=== PATIENT | male | born 1990 | race Caucasian/White ===

== ENCOUNTER 2017-12-13 09:45 | Inpatient (IN) | payer OTHER ==
[~2017-12-13] VITALS: Ht 190.5 cm; Wt 63.5 kg
--- NOTE | 2017-12-13 15:25 | NUR ---
Pre Assessment Patient met in intake office @ 7608. He is alert and oriented and has just arrived from [facility] via [facility]. He states he is here at [facility] for a medically supervised withdrawal from ETOH ( hard Liquor ). History: 1L of hard Liquor ( Vodka/Whisky/Velarde) every day for past 3 years, he states he has been drinking ETOH for 6 years total but the past 3 years at this rate of 1L /day He states he last had 1 pint ( 500ml) of Vodka at 0300 this AM 12/13/17. he does not seem intoxicated nor does he show S/S of ETOH withdrawal at this time. BRENDA 9 Explained unit policies and protocol and will continue assessment when patient is on the floor. Room 310
[2017-12-13] MEDS ORDERED: [UNRECOGNIZED DRUG - OTHER] (15:40)
[2017-12-13] MEDS ORDERED: ONDANSETRON ODT 4 MG TAB.RAPDIS SL PRN (15:45)
[2017-12-13] MEDS ORDERED: LORAZEPAM 2 MG/1 ML VIAL IM PRN (15:45)
[2017-12-13] MEDS ORDERED: CLONIDINE HCL 0.1 MG TABLET PO PRN (15:45)
[2017-12-13] MEDS ORDERED: THIAMINE HCL 200 MG/2 ML VIAL IM ONE (15:45)
[2017-12-13] MEDS ORDERED: DIAZEPAM 5 MG TABLET PO PRN (15:45)
[2017-12-13] MEDS ORDERED: DIAZEPAM 10 MG TABLET PO PRN ×2 (15:45)
[2017-12-13] MEDS ORDERED: IBUPROFEN 600 MG TABLET PO PRN (15:45)
[2017-12-13] MEDS ORDERED: MAGNESIUM HYDROXIDE 30 ML LIQUID UDC PO PRN (15:45)
[2017-12-13] MEDS ORDERED: ONDANSETRON 4 MG/2 ML VIAL IM PRN (15:45)
[2017-12-13] MEDS ORDERED: HYDROXYZINE PAMOATE 25 MG CAPSULE PO PRN (15:45)
[2017-12-13] MEDS ORDERED: LOPERAMIDE HCL 2 MG CAPSULE PO PRN ×2 (15:45)
[2017-12-13] MEDS ORDERED: MAG HYDROX/AL HYDROX/SIMETH 30 ML LIQUID UDC PO PRN (15:45)
[2017-12-13 16:00] VITALS: BP 121/81
[2017-12-13 16:17] LABS: *AMPHETAMINE, URINE NEGATIVE (NEGATIVE); *BARBITURATE, URINE NEGATIVE (NEGATIVE); *CANNABINOID, URINE NEGATIVE (NEGATIVE); *COCCAINE, URINE NEGATIVE (NEGATIVE); *OPIATE, URINE NEGATIVE (NEGATIVE); *PHENCYCLIDINE SCREEN,URINE NEGATIVE (NEGATIVE)
--- NOTE | 2017-12-13 18:22 | NUR ---
Admission Note Patient is a 27yr old male who arrived on the unit today 12/13/17 @ 1540. He is alert and oriented with a steady gait. He is clean and dressed nicely. His weight is 140lbs and Height 6'3", skin is dry and intact, he states no past medical history and no psychiatric history, He denies PCP or Psychiatrist. The only medication he takes and which he brought with him is " Apetamin" which is a vitamin supplement he takes 3 times per day before meals to increase appetite, medication has been taken to pharmacy. 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 Substance abuse history: ETOH ( hard Liquor/ Vodka/Alcorn/Whisky) 1L / day for the past 3 years last consumed 500ml Vodka @ 0300 on 12/13/17, he has been drinking at this rate for 3 years but total amount of years drinking ETOH is 6 years. Patient smokes Cigarettes- 10 cigarettes /day This is his first time in Recovery, he has never tried to get sober before, when asked Why now ? he replies " my wants me to get sober and gave me an ultimatum, I have a 6month old son and I don't want to mess this all up". He states the reason why he drinks is because of stress, stress of work , life , his Father was murdered a few years ago and he uses alcohol as a coping mechanism to deal with all the sadness in his life, he states his Mother of cancer when he was 3 years old- she was only 32 yrs old. He wants to go on to a 30 day Inpatient Recovery Center so he can learn the tools to live a sober life and to be able to deal with negative emotions and thoughts without having to drink alcohol. His withdrawal symptoms include lethargy, restlessness, thirst, decreased appetite. Encouraged to be open and honest about recovery and encouraged to attend therapy sessions and learn new coping skills and techniques. Patient is hopeful and eager to learn all that he can while here at [facility]. VSS : BP 121/81, HR 67, RR 17, T 98, O2SATS 96%, pain 0/10, CIWA 9 Lung sounds clear throughout, BS present in all 4 quadrants, no SOB noted MD placed patient on a 4 day Valium taper starting at 0900 12/14/17. Patient verbalizes understanding of plan of care, group therapy and discharge planning.
--- NOTE | 2017-12-13 19:09 | NUR ---
End Of Shift Patient is a 27 yr old new admit today 12/13/[address] [facility] for a medically supervised withdrawal from ETOH, he has been placed on a 4 day Valium taper to start tomorrow 12/14/17 @ 0900. No PRN medications have been required since admission, patient is resting in bed with eyes closed. CIWA was 9 @ 1700. He had a fluid intake of 355ml and 1 void. Continue to follow MD plan of care and offer support and encouragement. Endorsed to academic intern.
--- NOTE | 2017-12-13 19:10 | NUR ---
Start of Shift Received 27 year old male patient admitted 12/13/17 to [facility] for medically supervised withdrawal from ETOH. Pt was not given any PRN medications on day shift. Last CIWA 9 @ 1700. Pt is withdrawn, isolative, anxious, agitated, sleepy, and guarded. Pt in bed resting with eyes closed. Respirations are even and unlabored. Bed is low, side rails up x 2, and call chase in reach. Will continue to monitor.
[2017-12-13 20:00] VITALS: BP 116/72
--- NOTE | 2017-12-13 20:00 | NUR ---
CIWA 9 Pt is withdrawn, isolative, anxious, agitated, sleepy, and guarded. Pt in bed resting with eyes closed. Respirations are even and unlabored.
[2017-12-13 23:13] LABS: BASOPHILS % (AUTO) 0.6 % (0.0-2.0); EOSINOPHILS # (AUTO) 0.2 K/uL (0.0-0.7); EOSINOPHILS % (AUTO) 3.8 % (0.0-7.0); HEMATOCRIT 43.1 % (36.7-47.1); HEMOGLOBIN 14.3 g/dL (12.5-16.3); LYMPHOCYTES # (AUTO) 3.3 K/uL (20.0-40.0); LYMPHOCYTES % (AUTO) 51.2 % (20.5-51.5); MEAN CORPUSCULAR HEMOGLOBIN 26.8 uug (23.8-33.4); MEAN CORPUSCULAR HGB CONC 33 g/dL (32.5-36.3); MEAN CORPUSCULAR VOLUME 80.6 fL (73.0-96.2); MONOCYTES # (AUTO) 0.7 K/uL (2.0-10.0); MONOCYTES % (AUTO) 10.4 % (0.0-11.0); NEUTROPHILS # (AUTO) 2.2 K/uL (1.8-8.9); PLATELET COUNT (AUTO) 251 K/uL (152-348); RED BLOOD CELL COUNT(AUTO) 5.35 MIL/uL (4.06-5.63); WHITE BLOOD COUNT (AUTO) 6.4 K/uL (3.6-10.2)
[2017-12-13 23:35] LABS: ALANINE AMINOTRANSFERASE 23 U/L (16-63); ALKALINE PHOSPHATASE 78 U/L (50-136); AMYLASE 88 U/L (25-115); ASPARTATE AMINOTRANSFERASE 12 U/L (15-37); BILIRUBIN,TOTAL 0.6 mg/dL (0.2-1.0); CARBON DIOXIDE 29 mmol/L (21-32); CHLORIDE 103 mmol/L (98-107); CREATININE 1.1 mg/dL (0.6-1.3); GLUCOSE 95 mg/dL (74-106); LIPASE 170 U/L (73-393); POTASSIUM 4.2 mmol/L (3.5-5.1); TOTAL PROTEIN, SERUM 7.3 g/dL (6.4-8.2); UREA NITROGEN, BLOOD 16 mg/dL (7-18)
[2017-12-13 23:43] LABS: ETHANOL < 3 MG/DL (0-0)
--- NOTE | 2017-12-14 | NUR ---
CIWA deferred / Vitals refused Pt resting with eyes closed. Respirations are even and unlabored. CIWA deferred and pt refused vitals. Continue to monitor.
[2017-12-14 00:04] LABS: THYROID STIMULATING HORMONE 0.728 mIU/mL (0.358-3.740)
--- NOTE | 2017-12-14 04:00 | NUR ---
CIWA deferred / Vitals refused Pt resting with eyes closed. Respirations are even and unlabored. CIWA deferred and pt refused vitals. Continue to monitor.
--- NOTE | 2017-12-14 06:46 | NUR ---
End of Shift Endorsing 27 year old male patient admitted 12/13/17 to [facility] for medically supervised withdrawal from ETOH. Pt was not given any PRN medications on night filler. Last CIWA 9 @ 1999. Pt in bed resting with eyes closed. Respirations are even and unlabored. Bed is low, side rails up x 2, and call chase in reach. PO intake 0 ml, voided x 0, BM x 0, and slept 12 hours.
--- NOTE | 2017-12-14 07:30 | NUR ---
Start of Shift Hybrid Car Mechanic received report on 27 year old male admitted to [facility] on 12/13/17 for medical management of ETOH withdrawals. Pt endorses allergies to seafood, full code and regular diet. Pt denies PMH or PPH. Pt currently on 4 day Valium with last CIWA 9, per NOC. No PRN medication on NOC, per report. Hybrid Car Mechanic encounter pt in room resting with eyes closed. Even and unlabored respirations noted. Bed in locked position with wheels locked and side rails x2. Will continue to monitor, support and encourage according to plan of care.
[2017-12-14 08:00] VITALS: BP 105/58
--- NOTE | 2017-12-14 08:00 | NUR ---
CIWA 13 Pt is diaphoretic. tremuluous, restless, anxious and complains of nausea, and chills. Pt with tactil hallucinations and a headache. Will continue to monitor, support and encourage according to plan of care.
[2017-12-14] MEDS ORDERED: 4 DAY TAPER VALIUM-SERENITY PROTOCOL PO PRN (09:00)
[2017-12-14] MEDS ORDERED: TUBERCULIN,PURIF.PROT.DERIV. 5 TU/0.1 ML TEST ID ONE (09:00)
[2017-12-14] MEDS: MULTIVITAMINS,THERAPEUTIC TABLET PO SCH (09:43)
[2017-12-14] MEDS: FOLIC ACID 1 MG TABLET PO SCH (09:43)
[2017-12-14] MEDS: DIAZEPAM 5 MG TABLET PO SCH ×4 (09:43→20:29)
[2017-12-14] MEDS: THIAMINE HCL 100 MG TABLET PO SCH (09:43)
--- NOTE | 2017-12-14 09:50 | NUR ---
Therapist prompted client to attend group therapy.
[2017-12-14 12:17] VITALS: BP 114/70
--- NOTE | 2017-12-14 12:20 | NUR ---
CIWA 9 Pt remains anxious with restlessness, diaphoresis, and tremors. Pt endorses nausea and chills. Will continue to monitor, support and encourage according to plan of care.
[2017-12-14 16:30] VITALS: BP 124/75
--- NOTE | 2017-12-14 16:30 | NUR ---
CIWA 10 Pt diaphoretic, tremulous, anxious, restless and complains of nausea and chills. Pt is withdrawn and guarded. Will continue to monitor, support and encourage according to plan of care.
--- NOTE | 2017-12-14 18:48 | NUR ---
End of Shift Street Light Repairer Helper provided report on 27 year old male admitted to [facility] on 12/13/17 for medical management of ETOH withdrawals. Pt endorses allergies to seafood, full code and regular diet. Pt denies PMH or PPH. Pt currently on 4 day Valium with last CIWA 10, recorded at 1630. No PRN medication on this shift. Pt with a slow and concrete thought process. Pt with a clear, soft speech pattern. Pt with a blunted affect and depressed mood. Pt is anxious, restless and diaphoretic. Pt is quiet, withdrawn and guarded with staff. Pt is isolative to self and room, with no peer interaction. Bed in locked position with wheels locked and side rails x2.
--- NOTE | 2017-12-14 19:20 | NUR ---
Start of Shift Received 27 year old male patient admitted 12/13/17 to [facility] for medically supervised withdrawal from ETOH. Pt was not given any PRN medications on day shift. Last CIWA 10 @ 1600. Pt in bed resting with eyes closed. Respirations are even and unlabored. Bed is low, side rails up x 2, and call chase in reach. Will continue to monitor.
[2017-12-14 20:00] VITALS: BP 114/59
--- NOTE | 2017-12-15 | NUR ---
CIWA deferred/Vitals refused Pt resting with eyes closed. Respirations are even and unlabored. CIWA deferred and pt refused vitals. Continue to monitor.
--- NOTE | 2017-12-15 04:00 | NUR ---
CIWA deferred/Vitals refused Pt resting with eyes closed. Respirations are even and unlabored. CIWA deferred and pt refused vitals. Continue to monitor.
[2017-12-15 05:10] LABS: HEPATITIS B SURFACE AG Negative (Negative)
--- NOTE | 2017-12-15 06:45 | NUR ---
End of Shift Endorsing 27 year old male patient admitted 12/13/17 to [facility] for medically supervised withdrawal from ETOH. Pt was not given any PRN medications on day shift. Last CIWA 10 @ 1999. Pt is in bed resting with eyes closed. Respirations are even and unlabored. Bed is low, side rails up x 2, and call chase in reach. PO intake 1506 ml, voided x 2, BM x 0, and slept 12 hours.
[2017-12-15 08:00] VITALS: BP 114/66
--- NOTE | 2017-12-15 08:00 | NUR ---
START OF SHIFT CIWA ASSESSMENT Pt 27 y/o male admitted for etoh withdrawal. Pt received in room on bed with eyes closed resting, but easily arousable to name. Pt alert and oriented to name, place, and time. Perrla. Skin warm and moist to touch. Respirations even and unlabored. Appears disheveled and unkempt. Clothes scattered throughout the room. Encouraged to maintain hygiene. Anxious and restless. Pressured speech. Bilateral hand tremors noted. Irritable. Complaints of generalized discomfort. ciwa=10 @0800. It was reported that pt slept for 12 hours last night. Last ciwa = 10@1999. Pt is on a 4 day valium taper and is on day 2. Bed on lowest position with side rails x 2 up for safety. Call light within reach.
[2017-12-15] MEDS: MULTIVITAMINS,THERAPEUTIC TABLET PO SCH (08:11)
[2017-12-15] MEDS: FOLIC ACID 1 MG TABLET PO SCH (08:11)
[2017-12-15] MEDS: THIAMINE HCL 100 MG TABLET PO SCH (08:11)
[2017-12-15] MEDS: DIAZEPAM 5 MG TABLET PO SCH ×3 (08:12→20:33)
[2017-12-15 12:00] VITALS: BP 104/58
--- NOTE | 2017-12-15 12:00 | NUR ---
CIWA ASSESSMENT ciwa=10. Bilateral hand tremors noted. Anxious and restless. Pressured speech noted. Irritable and some agitation noted. Complaints of generalized discomfort.
--- NOTE | 2017-12-15 12:53 | NUR ---
Therapist prompted client to attend group therapy sessions.
[2017-12-15 16:00] VITALS: BP 106/62
--- NOTE | 2017-12-15 16:00 | NUR ---
CIWA ASSESSMENT ciwa=10. Anxious and restless. Pressured speech. Bilateral hand tremors noted. Irritable. Fidgety. Complaints of generalized discomfort.
--- NOTE | 2017-12-15 18:23 | NUR ---
END OF SHIFT Pt 27 y/o male admitted for etoh withdrawal. Pt alert and oriented to name, place, and time. Perrla. Skin warm and moist to touch. Respirations even and unlabored. Appears disheveled and unkempt. Clothes and empty drink bottles scattered throughout the room. Encouraged to maintain hygiene. Anxious and restless. Pressured speech noted. Fidgety. Bilateral hand tremors noted. Complaints of generalized discomfort. Isolative to room throughout the day with minimal peer interaction. Pt attended group activity. Pt medication compliant. Last ciwa=10 @ 1600. Pt is on a 4 day valium taper and is on day 2. Bed on lowest position with side rails x2 up for safety. Call light within reach.
--- NOTE | 2017-12-15 19:12 | NUR ---
Start of shift note Received report from day shift nurse. Pt is a 27 yo male, A+Ox4, presenting to [facility] fro medically supervised ETOH withdrawal. Pt noted with restlessness, anxiety, and agitation. Pt has no medical HX to report. Pt is on 4 day Valium taper, tolerated well. Respirations even and unlabored. Will continue to monitor.
[2017-12-15 20:12] VITALS: BP 134/77
--- NOTE | 2017-12-15 20:12 | NUR ---
CIWA Assessment CIWA: 9. Pt noted with fine tremors, anxiety, agitation, and sweat on brow. Respirations even and unlabored. Will continue to monitor.
--- NOTE | 2017-12-16 00:12 | NUR ---
V/S refused and CIWA Assessment deferred for sleep. Respirations even and unlabored. Will continue to monitor.
--- NOTE | 2017-12-16 04:47 | NUR ---
V/S refused and CIWA Assessment deferred for sleep. Respirations even and unlabored. Will continue to monitor.
--- NOTE | 2017-12-16 07:00 | NUR ---
End of shift note Pt was continuously noted with agitation, anxiety, and restlessness. Pt remained in room for majority of shift except to get food from kitchen and to go smoke on smoking patio. Pt remained compliant and cooperative with all aspects of treatment. Pt was not given any PRN medications during shift. Pt remains on 4 day Valium taper, tolerated well. Pt slept for a total of 9 HRS. Last CIWA: 9 @2011. Respirations even and unlabored. Will endorse to day shift nurse.
[2017-12-16 08:00] VITALS: BP 108/60
--- NOTE | 2017-12-16 08:00 | NUR ---
START OF SHIFT CIWA ASSESSMENT Pt 27 y/o male admitted for etoh withdrawal. Pt received in room awake watching television. Pt alert and oriented to name, place, and time. Perrla. Skin warm and moist to touch. Respirations even and unlabored. Appears disheveled. Clothes scattered throughout the room. Encouraged to maintain hygiene. Anxious and restless. Pressured speech. Bilateral hand tremors noted. Complaints of generalized discomfort. ciwa=11 @0800. It was reported that pt slept for 7 hours last night. Last ciwa=9 @1999. Pt is on a 4 day valium taper and is on day 3. Bed on lowest position with side rails x 2 up for safety. Call light within reach.
[2017-12-16] MEDS: THIAMINE HCL 100 MG TABLET PO SCH (08:28)
[2017-12-16] MEDS: FOLIC ACID 1 MG TABLET PO SCH (08:28)
[2017-12-16] MEDS: MULTIVITAMINS,THERAPEUTIC TABLET PO SCH (08:28)
[2017-12-16] MEDS: DIAZEPAM 5 MG TABLET PO SCH ×2 (08:28→20:08)
[2017-12-16 12:00] VITALS: BP 119/75
--- NOTE | 2017-12-16 12:00 | NUR ---
CIWA ASSESSMENT ciwa=11. Bilateral hand tremors noted. Anxious and restless. Pressured speech. Complaints of generalized discomfort.
--- NOTE | 2017-12-16 16:00 | NUR ---
CIWA ASSESSMENT ciwa=11. Anxious and restless. Pressured speech. Bilateral hand tremors. Complaints of generalized discomfort.
[2017-12-16 16:58] VITALS: BP 125/78
--- NOTE | 2017-12-16 19:03 | NUR ---
END OF SHIFT Pt 27 y/o male admitted for etoh withdrawal. Pt alert and oriented to name, place, and time. Perrla. Skin warm and moist to touch. Respirations even and unlabored. Appears disheveled. Food wrappings and empty drink bottles scattered throughout the room. Encouraged to maintain hygiene. Anxious and restless. Pressured speech noted. Bilateral hand tremors noted. Complaints of generalized discomfort. Mostly isolative to room throughout the day with minimal peer interaction. Pt attended group activity. Pt is medication compliant. Last ciwa=11 @ 1600. Pt is on a 4 day valium taper and is on day 3. Bed is on lowest position with side rails x 2 up for safety. Call light within reach.
--- NOTE | 2017-12-16 19:15 | NUR ---
Start of shift note Received report from day shift nurse. Pt is a 27 yo male, A+Ox4, presenting to [facility] for medically supervised ETOH withdrawal. Pt noted with restlessness, agitation, and anxiety. Pt has no medical HX to report. Pt is on 4 day Valium taper, tolerated well. Respirations even and unlabored. Will continue to monitor.
[2017-12-16 20:14] VITALS: BP 99/63
--- NOTE | 2017-12-16 20:14 | NUR ---
CIWA Assessment CIWA: 8. Pt noted with sweat on brow, agitation, and anxiety. Respirations even and unlabored. Will continue to monitor.
--- NOTE | 2017-12-17 00:55 | NUR ---
V/S refused and CIWA Assessment deferred for sleep. Respirations even and unlabored. Will continue to monitor.
--- NOTE | 2017-12-17 04:34 | NUR ---
V/s refused and CIWA Assessment deferred for sleep. Respirations even and unlabored. Will continue to monitor.
--- NOTE | 2017-12-17 07:00 | NUR ---
End of shift note Pt was continuously noted with restlessness, anxiety, and agitation. Pt remained in room for majority of shift except to get food from kitchen and to go smoke on smoking patio. Pt remained cooperative and compliant with all aspects of treatment. Pt was not given any PRN medications during shift. Pt remains on 4 day Valium taper, tolerated well. Pt slept for a total of 7 HRS. Last CIWA: 8 @2013. Respirations even and unlabored. Will endorse to day shift nurse.
[2017-12-17 08:00] VITALS: BP 114/67
--- NOTE | 2017-12-17 08:00 | NUR ---
Start of Shift Notes/COWS/CIWA Assessment: Received report from night nurse. Patient is a 27 year old male admitted for ETOH withdrawal who was placed on a 4-day Valium taper as ordered. No adverse reactiosn noted. Per night report, patient was not given any PRNs. Last CIWA 9. Slept for a total of 7 hours. Patient wa received in his room. Alert and oriented x 4. Verbally responsive. Denies S/I or H/I noted. No AV hallucinations noted. Appears disheveled. Room is odorous with garbage found on the floor and shoes scattered on the floor. Patient is odorous. Encouraged patient to maintain personal hygiene and space. He is noted with sweats, gross tremors, complains of fatigue, anxiety, restlessness, and difficulty concentrating. CIWA 10 at this time. Educated patient on his current plan of care for the day and his medication regimen. Encouraged oral fluid intake and encouraged group participation to learn new skills to prevent relapse. All needs met and attended. Will continue to monitor closely.
[2017-12-17] MEDS: FOLIC ACID 1 MG TABLET PO SCH (08:29)
[2017-12-17] MEDS: MULTIVITAMINS,THERAPEUTIC TABLET PO SCH (08:29)
[2017-12-17] MEDS: THIAMINE HCL 100 MG TABLET PO SCH (08:29)
[2017-12-17] MEDS ORDERED: DIAZEPAM 5 MG TABLET PO SCH (09:00)
[2017-12-17 12:00] VITALS: BP 112/66
--- NOTE | 2017-12-17 12:12 | NUR ---
CIWA Assessment: CIWA 9, patient continues to present with s.s of withdrawal m/b gross tremors, anxiety, agitation, fatigue, sweats and generalized discomfort. Will medicate patient as ordered.
[2017-12-17 16:00] VITALS: BP 125/66
--- NOTE | 2017-12-17 16:00 | NUR ---
CIWA Assessment: CIWA 9, patient continues to present with s.s of withdrawal m/b gross tremors, anxiety, agitation, fatigue, sweats and generalized discomfort. He was able to participate in group and activities. Will medicate patient as ordered.
--- NOTE | 2017-12-17 19:03 | NUR ---
End of Shift Notes: Patient completed his 4-day Valium taper as ordered. No adverse reactions noted. VS monitored closely. No significant abnormalities noted. Withdrawal symptoms were closely monitored. Initial CIWA 10, patient presented with gross tremors, anxiety, agitation, depressed mood, sweating, anxiety, and generalized discomfort. Last CIWA 9. Patient verbalizes that Valium has been effective in reducing his withdrawal symptoms. Able to participate in group and activities despites his withdrawal symptoms. Appetite good. All needs met and attended. Will continue to monitor closely.
--- NOTE | 2017-12-17 19:30 | NUR ---
START OF SHIFT Pt is a 22 y/o male admitted on 12/13/17 for ETOH withdrawal. Pt completed a 4 day Valium taper and is set for discharge tomorrow. Last CIWA 9 and no PRN medications were administered during day shift. Upon assessment Pt presented with anxiety, cramps, constipation, and difficulty falling and staying asleep. Medications due. Safety measures in place. Call light within reach. Will continue to monitor. Addendum: 12/18/17 at 0706 by ENRRIQUE HARTMAN RN Pt is a27 year old male.
[2017-12-17 20:00] VITALS: BP 122/81
--- NOTE | 2017-12-17 20:00 | NUR ---
CIWA 6 Pt presents with anxiety, agitation, flushed skin and constipation. Safety measures in place. Call light within reach. Will continue to monitor.
--- NOTE | 2017-12-17 23:36 | NUR ---
MILK of MAG ADMINISTRATION Pt presented with constipation and stated he has not had a BM in 3 days. Pt has abdominal destination and intermittent discomfort. Pt requested medication to help. Milk of Mag with administered per order. Safety measures in place. Call light within reach. Will continue to monitor.
[2017-12-18] VITALS: BP 123/71
--- NOTE | 2017-12-18 | NUR ---
CIWA DEFERRED AND VITAL SIGNS REFUSED Patient is noted in bed with eyes closed. Breathing even and non labored. CIWA and vital signs not able to be completed per order. Safety measures in place. Call light within reach. Will continue to monitor.
--- NOTE | 2017-12-18 | NUR ---
CIWA 6 Pt presents with anxiety, agitation, flushed skin, and constipation. Pt denies any pain or discomfort. Safety measures in place. Call light within reach. Will continue to monitor.
--- NOTE | 2017-12-18 00:36 | NUR ---
MILK of MAG REASSESSMENT Pt complains of constipation and has not had a BM in 3 days. On reassessment Pt has not had a BM since receiving the medication. Safety measures in place. Call light within reach. Will continue to monitor.
--- NOTE | 2017-12-18 07:05 | NUR ---
END OF SHIFT Pt is a 27 y/o male admitted on 12/13/17 for ETOH withdrawal. Pt completed a 4 day Valium taper and is set for discharge today. Pt presented with anxiety, cramps, constipation, and difficulty falling and staying asleep. PRN Milk of Magnesia was administered. Last CIWA 6. Pt slept 7 hours. Intake 980 ml, void x 2, stool x 0. Safety measures in place call light within reach. Pt's needs have been meet. Endorsed to day shift nurse.
--- NOTE | 2017-12-18 07:44 | NUR ---
Start of shift note; Received report from night nurse. Patient is a 27 year old male admitted on 12/13/17 for ETOH withdrawals. Patient is AOX4, appears nervous about upcoming discharge. Patient completed treatment without any adverse reactions. Patient is medically cleared for discharge today to be transferred to [facility] recovery. All safety measures secured. Will continue to monitor patient.
[2017-12-18 08:00] VITALS: BP 105/61
[2017-12-18] MEDS: FOLIC ACID 1 MG TABLET PO SCH (08:29)
[2017-12-18] MEDS: MULTIVITAMINS,THERAPEUTIC TABLET PO SCH (08:29)
[2017-12-18] MEDS: THIAMINE HCL 100 MG TABLET PO SCH (08:29)
--- NOTE | 2017-12-18 09:35 | NUR ---
Discharge note; Patient is AOX4, completed treatment without any adverse reactions. All valuables, belongings and home medication returned to patient. Patient denies S/I or H/I. Patient was escorted out of the facility by LITHOGRAPHIC GENERAL WORKER. Patient to be transferred to [facility] accompanied by [employer] transportation. Patient left in a stable condition.
== END 2017-12-18 09:35 | disposition home or self-care (01) | DRG 895 ==
LOC: SRC 14:47
PROVIDERS: ADMIT Family Medicine Addiction Medicine; ATTEND Family Medicine Addiction Medicine
DX: F10.230 Alcohol dependence with withdrawal, uncomplicated (principal); Y90.0 Blood alcohol level of less than 20 mg/100 ml; F17.210 Nicotine dependence, cigarettes, uncomplicated; Z80.9 Family history of malignant neoplasm, unspecified
CPT/HCPCS: 36415; 70030-TC; 80307; 83690; 83735; 84443; 85025; 86592; 86705; 86803; 87340; 87806; A4663; G0480